=== PATIENT | female | born 1985 | race Caucasian/White ===

== ENCOUNTER → 2021-08-29 13:21 | Outpatient (CLI) | payer OTHER, SELFPAY ==
--- NOTE | 2021-08-29 | DI.MG.S_ITS ---
BILATERAL DIGITAL DIAGNOSTIC MAMMOGRAM 3D/2D: 08/29/2021 CLINICAL: Baseline. Bilateral breast pain and lumps. No prior exams were available for comparison. There are scattered fibroglandular elements in both breasts. No significant masses, calcifications, or other findings are seen in either breast. IMPRESSION: INCOMPLETE: NEEDS ADDITIONAL IMAGING EVALUATION There is no abnormality seen in the right breast to correspond with the palpable abnormality at 11 o'clock, however, ultrasound is recommended. There is no abnormality seen in the left breast to correspond with the palpable abnormality at 3 o'clock, however, ultrasound is recommended. There is no abnormality seen in the left breast to correspond with the palpable abnormality at 6 o'clock, however, ultrasound is recommended. There is no abnormality seen in either breast to correspond with the periareolar skin lesions in the sub-areolar regions, however, ultrasound is recommended. There is no abnormality seen in either breast to correspond with the diffuse pain, however, clinical followup is recommended. Ultrasound will be performed immediately following the current exam. This exam was interpreted at Station ID: [id number]. NOTE: For mammograms, a report in lay terms will be sent to the patient. Approximately 15% of breast malignancies will not be visualized mammographically. In the management of a palpable breast mass, a negative mammogram must not discourage biopsy of a clinically suspicious lesion. Electronically Signed By: Terrence Bland M.D. ddp/:08/29/2021 14:47:06 ACR BI-RADS Category 0: Incomplete [id number]
--- NOTE | 2021-08-29 | DI.US.S_ITS ---
LIMITED ULTRASOUND OF RIGHT BREAST: 08/29/2021 CLINICAL: Palpable right breast lump. Comparison is made to exam dated: 08/29/2021 [facility]. Real-time ultrasound of the right breast 11 o'clock, and retroareolar regions was performed on the area of interest. No discrete cystic or solid mass lesion identified in the area of palpable abnormality at 11 o'clock. No discrete cystic or solid mass lesion identified in the retroareolar region to correlate with the periareolar skin lesions. IMPRESSION: NEGATIVE There is no sonographic evidence of malignancy. There is no abnormality seen in the right breast to correspond with the palpable abnormality at 11 o'clock, however, clinical followup is recommended. There is no abnormality seen in the right breast to correspond with the periareolar skin lesion at the sub-areolar depth, however, clinical followup is recommended. A screening mammogram is recommended in 4 years. This exam was interpreted at Station ID: [id number]. Electronically Signed By: Terrence Bland M.D. ddp/:08/29/2021 14:56:13 Entry: - 08/30/2021 08:46:54 Ultrasound BI-RADS: 1 Negative
--- NOTE | 2021-08-29 | DI.US.S_ITS ---
LIMITED ULTRASOUND OF LEFT BREAST: 08/29/2021 CLINICAL: Palpable left breast lumpX 2. Comparison is made to exam dated: 08/29/2021 [facility]. Real-time ultrasound of the left breast 3 o'clock, 6 o'clock, and retroareolar regions was performed on the area of interest. No discrete cystic or solid mass lesion identified in the areas of palpable abnormality at 3 and 6 o'clock positions. No discrete cystic or solid mass lesion identified in the retroareolar region to correlate with the skin findings in the periareolar region. IMPRESSION: NEGATIVE There is no sonographic evidence of malignancy. There is no abnormality seen in the left breast to correspond with the palpable abnormality at 3 o'clock, however, clinical followup is recommended. There is no abnormality seen in the left breast to correspond with the palpable abnormality at 6 o'clock, however, clinical followup is recommended. There is no abnormality seen in the left breast to correspond with the skin lesion in the sub-areolar depth, however, clinical followup is recommended. A screening mammogram is recommended in 4 years at age 40. This exam was interpreted at Station ID: [id number]. Electronically Signed By: Terrence Bland M.D. ddp/:08/29/2021 14:54:15 letter sent: Clinical Evaluation Ultrasound BI-RADS: 1 Negative
== END ==
PROVIDERS: PCP Student in an Organized Health Care Education/Training Program; Referring Provider Student in an Organized Health Care Education/Training Program; Visit Provider Student in an Organized Health Care Education/Training Program
DX: R92.2 Inconclusive mammogram (principal); N60.19 Diffuse cystic mastopathy of unspecified breast; N63.11 Unspecified lump in the right breast, upper outer quadrant; N63.25 Unspecified lump in the left breast, overlapping quadrants; N64.4 Mastodynia
CPT/HCPCS: 76642; 77066; G0279

== ENCOUNTER → 2021-09-01 10:46 | Outpatient (CLI) | payer OTHER, SELFPAY ==
[2021-09-01 12:24] LABS: COVID19 -Nasal RAPID Negative (Negative)
== END ==
PROVIDERS: PCP Student in an Organized Health Care Education/Training Program; Visit Provider Family Medicine Sleep Medicine
DX: Z20.822 Contact with and (suspected) exposure to COVID-19 (principal)
CPT/HCPCS: 87635; C9803

== ENCOUNTER 2021-09-04 06:35 | Day surgery (SDC) | payer OTHER, SELFPAY ==
[2021-08-31 14:12] VITALS: BMI 32.7
[2021-09-04] VITALS (11 sets, daily range): BP systolic 96–124; BP diastolic 56–79; PULSE 56–80; RESP 14–18; TEMP 36.1–36.8; O2SAT 91–99; BMI 32.7
--- NOTE | 2021-09-04 | PATH_ITS ---
[facility] Accession Number: [id number] No. of containers..01 Tissue . 01 Material submitted: . gallbladder - GALLBLADDER . 02 Diagnosis: Gallbladder, Cholecystectomy: Chronic cholecystitis with cholelithiasis and cholesterolosis. Negative for dysplasia and malignancy. MRV 09/08/2021 1248 Local . 02 Electronically signed: . Taylor Patterson MD, Pathologist NPI- [id number] . 01 Gross description: . Received in formalin, labeled with the patient's name and additionally labeled gallbladder, is a gallbladder measuring 6.2 x 2.4 x 2.0 cm. The serosal surface is hernandez-jensen, smooth and glistening. The liver bed surface is hernandez-brown and granular. The specimen is opened through the tortuous cystic duct revealing numerous yellow-green multifaceted calculi ranging in size from 0.1 to 1.2 cm in greatest dimension. There is approximately 3 mL of bile sludge present. The mucosal surface is brown-green and velvety with areas of mulligan cholesterolosis. No masses or lesions are identified. [employer] sections, including the blue-inked cystic duct margin are submitted in cassette A1. ([id number]) /MRV 09/06/2021 1431 Local . 02 Pathologist provided ICD-10: K80.60 . 02 CPT . 788914 Specimen Comment: A courtesy copy of this report has been sent to [phone] Performed at: 01 [facility] [address] [id number] MD Terrence Golden MD Phone: [phone] Performed at: 02 [facility] [place] [id number] [place] [id number] MD Taylor Patterson MD Phone: [phone]
[2021-09-04] MEDS: LACTATED RINGERS 1,000 ML 42 ML IV (07:32)
--- NOTE | 2021-09-04 07:49 | PM.PREOP ---
Pre-operative Note COVID-19 COVID-19 status: Negative Result date/Date tested (Pos, Neg/Pending): 09/01/21 Criteria for continued procedure: Expected advancement of disease process and Possibility delay results in more complex future surgery or treatment Interval Note History & Physical reviewed/Exam performed by Physician: Yes Changes to H&P: No ASA Class (for procedural sedation): II
[2021-09-04] MEDS: CEFAZOLIN 2 GM/20 ML SYRINGE IV (08:00)
--- NOTE | 2021-09-04 08:20 | SUR.OPER ---
Supine on padded OR bed, head on pillow, arms secured on padded arm boards at <90 degrees abduction, legs uncrossed, safety belt at thigh, tape over blanket over lower legs.
[2021-09-04] MEDS: BUPIVACAINE 0.5% (PF) VIAL 20 ML INJ (08:31)
[2021-09-04] MEDS: LIDOCAINE 1% 20 ML INJ (08:32)
[2021-09-04] MEDS: EPINEPHrine 1 MG/ML 0.2 MG IM (08:33)
--- NOTE | 2021-09-04 09:13 | SUR.OPER ---
Anna De La Torre RN relief [phone]
--- NOTE | 2021-09-04 09:24 | PM.OP.1 ---
Operative Date/Time/Diagnoses Date of procedure: 09/04/21 Time of procedure: 09:24 Pre-op diagnosis: Cholelithiasis Post-op diagnosis: same Procedure & Clinicians Procedure: Laparoscopic cholecystectomy Same procedure as scheduled: Yes Indications: Cholelithiasis Surgeon: Parvez Kc Anesthesia Type: General Operative Notes Procedure in detail: The patient was given preoperative antibiotic. The patient was brought to the operating room, placed on the table in the supine position. General endotracheal anesthesia was induced. The abdomen was prepped and draped. A time-out was performed. We made a 1 cm infraumbilical incision. We dissected down to the base of the umbilical stalk using cautery. We grasped the umbilical stalk with a Owen clamp to elevate the abdominal wall. We scored the fascia in the midline with cautery 1 cm. We pierced the peritoneum with a Peon clamp. The Jose port was placed and the abdomen was insufflated to 15 mmHg. A 10 mm 30 degree laparoscopic was inserted. There was no evidence of any injury from the entry. Next, we placed 5 mm ports in the subxiphoid position and right upper quadrant at the midclavicular line and anterior axillary line. Patient was then positioned in reverse Trendelenburg and the table was tilted to the left. The gallbladder was grasped at the dome and retracted cephalad. There were some adhesions of mesenteric tissue to the right liver which were carefully dissected with cautery to allow full retraction of the gallbladder. We then dissected the cystic structures with a combination of hook cautery and blunt dissection. We obtained a critical view. We placed hemoclips on the cystic duct and artery and divided the cystic duct and artery sharply between the clips. The gallbladder was then dissected off the liver and placed in a specimen retrieval bag. We irrigated the right upper quadrant and all the aspirate returned clear. We then removed the 5 mm ports under direct vision we removed the Jose port. We then injected some local into the fascia and closed the fascia with 2 interrupted 0 Vicryl sutures. The skin incisions were closed with 4 Monocryl and Steri-Strips were applied. Band-Aids were applied over the Steri-Strips. EBL: 10 mL Specimen: Gallbladder Post-operative Condition: stable Disposition: PACU
[2021-09-04] MEDS: fentaNYL 100 MCG/2 ML INJ IV (09:44)
[2021-09-04] MEDS: ACETAMINOPHEN 325 MG TABLET 650 MG PO (09:53)
[2021-09-04] MEDS: OXYCODONE IR 5 MG TABLET PO (09:54)
--- NOTE | 2021-09-04 15:03 | SUR.PHASEII ---
Late entry: Belly soft, no nausea, drinking fluids, bandaids c/d/i. called when pt ready to go, picked up Doctors note at MD's office. Pt left when ready and left in stable condition.
== END 2021-09-04 11:30 | disposition home or self-care (01) ==
PROVIDERS: PCP Student in an Organized Health Care Education/Training Program; Referring Provider Surgery; Visit Provider Surgery
PROC: 0FT44ZZ Resection of Gallbladder, Percutaneous Endoscopic Approach (ICD-10-PCS; CPT 47562; principal; 2021-09-04 07:45)
DX: K80.20 Calculus of gallbladder without cholecystitis without obstruction (principal)
CPT/HCPCS: 47562; J0171; J0690; J1100; J2405; J2704; J3010